=== PATIENT | female | born 1990 | race Caucasian/White ===

== ENCOUNTER → 2017-08-09 | Outpatient (REF) | payer OTHER | LOC: M LAB REF 17:56 | DX: Z12.4 Encounter for screening for malignant neoplasm of cervix (principal) ==

== ENCOUNTER → 2018-07-03 | Outpatient (CLI) | payer BC, OTHER ==
--- NOTE | 2018-07-04 03:21 | REP ---
Clinical: Pain with recent trauma/fall . Technique: AP, lateral, bilateral oblique views left ankle . Findings: No acute fracture or dislocation. Skeletal structures and joint spaces are intact and normal. Ankle mortise appears stable. No subcutaneous emphysema or radiodense foreign body. Impression: Normal left ankle radiograph series. Electronically Signed by Ed Rincon MD 07/04/2018 03:13 A
--- NOTE | 2018-07-04 03:23 | REP ---
Clinical: Left hip pain with recent trauma/fall. Technique: Neutral and frog lateral views of the left hip. Findings: No acute fracture dislocation. Skeletal structures, joint spaces, and surrounding soft tissues are normal. Impression: No acute fracture or dislocation. Electronically Signed by Ed Rincon MD 07/04/2018 03:15 A
--- NOTE | 2018-07-04 03:24 | REP ---
Clinical: Pain with recent trauma/fall Technique: AP, lateral, bilateral oblique views left foot . Findings: The osseous structures and joint spaces are intact and normal. There is no evidence for acute fracture or dislocation. Surrounding soft tissues are unremarkable. No subcutaneous emphysema or radiodense foreign body. Impression: Normal left foot series . No acute fracture or dislocation. Electronically Signed by Ed Rincon MD 07/04/2018 03:16 A
== END ==
LOC: M WUC 19:19
PROVIDERS: ATTEND Physician Assistant
DX: M25.572 Pain in left ankle and joints of left foot (principal); M25.552 Pain in left hip

== ENCOUNTER → 2018-08-09 | Outpatient (REF) | payer BC | LOC: M SFHCLERA 10:40 | PROVIDERS: ATTEND Nurse Practitioner Family | DX: R53.81 Other malaise (principal) ==